=== PATIENT | male | born 1940 | race Caucasian/White ===

== ENCOUNTER 2018-07-13 09:43 | Outpatient (CLI) | payer MEDICARE, BC ==
--- NOTE | 2018-07-13 13:10 | MRI ---
MRI LUMBAR SPINE WITH AND WITHOUT CONTRAST: 07/13/2018 HISTORY: A 78-year-old male with, M54.16 lumbar radicular pain, and M47.816 lumbar spondylosis. COMPARISON: Noncontrast MRI of 01/06/2018. TECHNIQUE: Multiple sequences obtained in axial and sagittal planes, pre and post IV injection of gadolinium-bas ed contrast agent: MultiHance 19 mL. FINDINGS: There is a moderately large left renal cyst, only partially imaged. This was present on previous bhargav dies. The urinary bladder is distended on the current MRI, as was the case previously. For the purposes of this report, it will be assumed that there are five lumbar type vertebrae. No ludmila or spondylolisthesis. Disk space narrowing is mild to moderate at L3-L4, moderate to severe at L5-S1 , and mild at L1-L2. The conus medullaris terminates at approximately L1-L2. T12-L1: Essentially normal. L1-L2: No central or neural foraminal stenosis. L2-L3: Essentially normal. L3-L4: There has been an interval right hemilaminotomy and removal of the majority of the volume of the previously demonstrated large extruded disk herniation, with superior migration of extruded disk material. Currently, there is a small right paracentral and lateral component of disk herniation, wh ich posteriorly displaces the right L4 nerve root within the thecal sac. There is a thin layer of en hancing granulation tissue around this small disk herniation, but no central enhancement within it. This enhancing scar tissue also extends into the right neural foramen, causing moderate right neural foraminal stenosis around the exiting right L3 nerve root. There is no significant central spinal can al stenosis. Mild left neural foraminal stenosis. L4-L5: Generous caliber of spinal canal. No high-grade neural foraminal stenosis. L5-S1: Generous caliber of spinal canal. Mild right neural foraminal stenosis. No left neural fora kostas stenosis. IMPRESSION: 1. Status post right hemilaminotomy at L3-L4, with interval removal of most of the large, extruded, right-sided herniated disk material. 2. Currently, there is a small, residual right paracentral and lateral disk herniation at that level , mildly posteriorly displacing the right L4 nerve root. 3. There is scar tissue in the right L3-L4 neural foramen. 4. There is no central spinal canal stenosis at any level. 5. Distended urinary bladder. MARIA DEL CARMEN Durand POS: JAN
== END 2018-07-13 09:44 | disposition home or self-care (01) ==
LOC: SCSMRI 09:43
PROVIDERS: ATTEND Neurological Surgery
DX: M47.26 Other spondylosis with radiculopathy, lumbar region (principal); M51.16 Intervertebral disc disorders with radiculopathy, lumbar region; L90.5 Scar conditions and fibrosis of skin; Z98.890 Other specified postprocedural states
CPT/HCPCS: 72158; 82565